=== PATIENT | male | born 1980 | race Caucasian/White ===

== ENCOUNTER 2017-05-15 19:59 | Emergency (ER) | payer OTHER ==
[~2017-05-15] VITALS: Ht 172.7 cm; Wt 90.7 kg
[2017-05-15] MEDS ORDERED: IV NORMAL SALINE 1000ML BAG 1,000 ML IV ONE (20:15)
[2017-05-15 20:23] LABS: BASO # 0.1 x10^3/uL (0.0-0.2); BASO % 1 % (0-3); EOS % 1 % (0-3); HEMATOCRIT 46.6 % (39.0-53.0); HEMOGLOBIN 16.2 g/dL (13.0-17.5); LYMPH # 2.6 x10^3/uL (1.0-4.8); LYMPH % 32 % (24-48); MEAN CORPUSCULAR HEMOGLOBIN 33 pg (25-35); MEAN CORPUSCULAR HGB CONC 35 g/dL (31-37); MEAN CORPUSCULAR VOLUME 94 fL (79-100); MONO % 10 % (0-9); NEUT % 57 % (31-73); PLATELET COUNT 266 x10^3/uL (140-400); RED BLOOD COUNT 4.97 x10^6/uL (4.30-5.70); RED CELL DISTRIBUTION WIDTH 12.8 % (11.5-14.5); WHITE BLOOD COUNT 8.4 x10^3/uL (4.0-11.0)
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
[2017-05-15 20:47] LABS: CALCIUM 9.4 mg/dL (8.5-10.1); CREATININE 1.3 mg/dL (0.7-1.3); GFR 62.8; POTASSIUM 3.5 mmol/L (3.5-5.1)
[2017-05-15 20:52] LABS: ALBUMIN/GLOBULIN RATIO 1.1 (1.0-1.7); TOTAL BILIRUBIN 0.6 mg/dL (0.2-1.0); TOTAL PROTEIN 7.6 g/dL (6.4-8.2)
[2017-05-15] MEDS ORDERED: IOHEXOL 350 MG/ML 100 ML VIAL. IV ONE (21:00)
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
[2017-05-15] MEDS ORDERED: CIPR500T94 PO (21:54)
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
[2017-05-15] MEDS ORDERED: HYDR-971 PO (22:38)
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
== END 2017-05-15 22:29 | disposition home or self-care (01) ==
LOC: EEVIPCON 19:59 → ER 19:59
DX: S51.831A Puncture wound without foreign body of right forearm, initial encounter (principal); S61.431A Puncture wound without foreign body of right hand, initial encounter; Z87.820 Personal history of traumatic brain injury; W34.00XA Accidental discharge from unspecified firearms or gun, initial encounter; Y93.89 Activity, other specified; Y92.89 Other specified places as the place of occurrence of the external cause; Y99.8 Other external cause status
CPT/HCPCS: 36415; 70450; 73090; 73130; 73206; 80053; 85027; 96360; 99285; G0480; J7030; Q9967

== ENCOUNTER → 2017-05-25 | Outpatient (CLI) | payer OTHER ==
[~2017-05-25] MED LIST: CIPR500T94 PO; HYDR-971 PO
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
== END | disposition home or self-care (01) ==
LOC: KCIC 10:17
PROVIDERS: ATTEND Orthopaedic Surgery
DX: M79.5 Residual foreign body in soft tissue (principal)
CPT/HCPCS: 71020

== ENCOUNTER 2018-01-04 13:47 | Emergency (ER) | payer OTHER ==
[2018-01-04] MEDS: IBUPROFEN 800 MG TABLET. PO (14:14)
== END 2018-01-04 15:54 | disposition home or self-care (01) ==
LOC: ER 13:47
DX: M25.562 Pain in left knee (principal); F43.10 Post-traumatic stress disorder, unspecified; Z88.1 Allergy status to other antibiotic agents; W19.XXXA Unspecified fall, initial encounter; Y93.89 Activity, other specified; Y99.8 Other external cause status; Y92.89 Other specified places as the place of occurrence of the external cause
CPT/HCPCS: 29505; 73562; 99284

== ENCOUNTER → 2018-01-29 | Outpatient (CLI) | payer OTHER | END | disposition home or self-care (01) | LOC: KCIC MRI 16:01 | DX: S72.425A Nondisplaced fracture of lateral condyle of left femur, initial encounter for closed fracture (principal); M25.462 Effusion, left knee; X58.XXXA Exposure to other specified factors, initial encounter; Y93.89 Activity, other specified; Y92.89 Other specified places as the place of occurrence of the external cause; Y99.8 Other external cause status | CPT/HCPCS: 73721 ==

== ENCOUNTER 2021-05-17 07:57 | Emergency (ER) | payer SELFPAY ==
[~2021-05-17] VITALS: Ht 172.7 cm; Wt 90.0 kg
[~2021-05-17 07:57] MED LIST changes: +HYDR-3164 PO; -HYDR-971 PO; +IBUP-1060 PO; +TRAM50TA PO
--- NOTE | 2021-05-17 08:48 | RAD ---
XR CHEST 1V History: Reason: sob / Spl. Instructions: / History: Comparison: May 25, 2017 Findings: No consolidation or pleural effusion. Normal heart size. No pneumothorax. Impression: 1. No acute cardiopulmonary process. Electronically signed by: Darin Mott DO (05/17/2021 8:45 AM) [id number]
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
--- NOTE | 2021-05-17 10:26 | EKG ---
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
[2021-05-17 10:58] VITALS: BP 161/78
== END 2021-05-17 11:10 ==
LOC: ER 07:57
DX: F41.9 Anxiety disorder, unspecified (principal); Z20.822 Contact with and (suspected) exposure to COVID-19; R07.89 Other chest pain; R06.02 Shortness of breath; R20.0 Anesthesia of skin; I10 Essential (primary) hypertension; F17.200 Nicotine dependence, unspecified, uncomplicated; F43.10 Post-traumatic stress disorder, unspecified; Z87.820 Personal history of traumatic brain injury; F10.20 Alcohol dependence, uncomplicated; Y90.9 Presence of alcohol in blood, level not specified; Z88.1 Allergy status to other antibiotic agents
CPT/HCPCS: 71045; 87426; 93005; 99285-25